=== PATIENT | female | born 1990 | race Caucasian/White ===

== ENCOUNTER 2017-02-17 14:00 | Inpatient (IN) | payer MEDICAID ==
[~2017-02-17] VITALS: Ht 162.6 cm; Wt 55.8 kg
--- NOTE | ~2017-02-17 | PA ---
Unit #: [id number] #: [id number] Patient: BARBARA DODGE [id number] [facility] [address] [place] [address] [id number] I MR#: [id number] NAME: BARBARA DODGE ROOM: P210 Age: 26 Sex: F Admission Date: 02/18/2017 : 1990 Date of Assessment: Attending Physician: Giuseppe Horne M.D. Admitting Physician: Giuseppe Horne M.D. PSYCHIATRIC ASSESSMENT INFORMANTS The patient reliability, fair informant and chart reliability, good. CHIEF COMPLAINT Detox and jackie. HISTORY OF PRESENT ILLNESS Barbara Dewey is a 26-year-old female, presented with the above-mentioned complaint. The patient presented with suicidal ideation. The patient was sent out for medical clearance because of chest pain. The patient returned to [facility]. Denied suicidal ideation. Reported scratched her eyes with her finger and was hearing voices on 02/16/2017. The patient denied any current suicidal ideation. The patient reported having withdrawals from heroin and also using meth, but reported heroin 0.5 g and meth on 02/16/2017. The patient feeling anxious, nervous, having above-mentioned behavior. Needing inpatient treatment at this time for psychiatric stabilization. PAST PSYCHIATRIC HISTORY Remarkable for history of previous treatment at [facility], last admitted in 08/2016. FAMILY HISTORY AND SOCIAL HISTORY Poor family support. No known history of any psychiatric illness. No legal charges. MEDICAL HISTORY Unremarkable for any chronic medical illness, except self-harm on her face. MEDICATION HISTORY None. ALLERGIES No known drug allergies. SUBSTANCE ABUSE HISTORY The patient reported tobacco use, age of onset 11 and use of alcohol, crack cocaine, opioids, amphetamine, and synthetic drugs. Longest period of sobriety 4 months and last period of sobriety in 2017. The patient reported history of hepatitis, withdrawal symptom, and IV drug use. No history of blackouts. The patient reported abdominal cramping, muscle cramping, diaphoresis, diarrhea, depressed mood, headache, irritability, nervousness, poor appetite and concentration, and tremor. Unit #: [id number] #: [id number] Patient: BARBARA DODGE REVIEW OF SYSTEMS HEENT: Eyes, clear. Ears, nose, mouth, and throat; clear. CARDIOVASCULAR: Unremarkable. RESPIRATORY: Unremarkable. GI: Unremarkable. : Unremarkable. SKIN: Unremarkable. LYMPH NODE: Unremarkable. NEUROLOGIC: Unremarkable. ENDOCRINE: Unremarkable. HEMATOLOGIC: Unremarkable. ALLERGIC/IMMUNOLOGIC: Unremarkable. MUSCULOSKELETAL: Muscle strength and tone, no atrophy or abnormal movement. Gait normal. MENTAL STATUS EXAMINATION CONSTITUTIONAL: Measurement of vital signs; temperature 97.6, heart rate 72, respiratory rate 17, and blood pressure 138/76. Height 5 feet 4 inches and weight 123 pounds. GENERAL APPEARANCE: The patient dressed casually. Hygiene and grooming, fair. No facial deformity noted except for facial scratching. MUSCULOSKELETAL: Please see above. PSYCHIATRIC EXAMINATION Description of speech, slow in volume and rate. Description of thought process, circumstantial. Description of association, intact. Description of abnormal psychotic thinking, guarded. The patient reported mood lability, sad, depressed, and anxious. Denied any suicidal or homicidal ideation, but self-injurious behavior. Description of the patient's judgment: Concerning everyday activity, poor. Social situation, poor. Concerning psychiatric condition, poor. Complete mental status examination; oriented in time, place, and person. Recent and remote memory, poor. Attention span and concentration, poor. Language, fair. Fund of knowledge, fair. Vocabulary, fair. Mood and affect, sad and dysphoric. Insight and judgment, fair to poor. ASSETS AND LIABILITIES Assets, the patient is articulate and able to take care of her ADL. Liability, history of substance abuse and depression. ADMITTING DIAGNOSES Psychiatric: Major depressive disorder, recurrent, severe, F33.2; amphetamine use disorder, severe, F15.20; and history of opioid use disorder, severe, F11.20. Secondary diagnosis: Deferred. Medical diagnosis: None. Stressors: Psychosocial stressors. PSYCHIATRIC PLAN AND TREATMENT GOAL AND DISCHARGE PLAN 1. Advised to admit the patient on the inpatient unit. Provide safe, supportive, and structured environment. 2. Ordered labs; CBC, CMP, UA, and UDS. 3. Precaution for self-harm. Unit #: [id number] #: [id number] Patient: BARBARA DODGE 4. The patient to start with detox protocol and detox monitoring. Advised trazodone 75 mg at bedtime for sleep. The patient to attend all the programing, group therapy, individual therapy, and chemical dependency group. Treatment goal to attain euthymic mood, gain insight into her problem, and learn coping skills. DISCHARGE PLAN Plan to stabilize the patient and consider followup in outpatient program. ESTIMATED LENGTH OF STAY 3 to 5 days. Dictated by... Candy Yao/lucy TD: 02/18/2017 16:10 JOB #: [id number] PSYCHIATRIC ASSESSMENT Page 1 of 1 X Giuseppe Horne MD X PSYCHIATRIC ASSESSMENT
--- NOTE | ~2017-02-17 | HP ---
Unit #: [id number] #: [id number] Patient: BARBARA DODGE [id number] [facility] [address] [place] [address] [id number] I MR#: [id number] NAME: BARBARA DODGE ROOM: P210 Age: 26 Sex: F Admission Date: 02/18/2017 : 1990 Attending Physician: Giuseppe Horne M.D. Admitting Physician: Giuseppe Horne M.D. Primary Care Physician: Primary Care Physician No HISTORY AND PHYSICAL HISTORY OF PRESENT ILLNESS Barbara is a 26 year old admitted to [address] [place] [address] because of her drug use. She shoots methamphetamine. PAST MEDICAL HISTORY 1. Long history of illicit substance abuse to include IV meth. 2. Hepatitis C. PAST SURGICAL HISTORY x1. ALLERGIES Risperdal. SOCIAL HISTORY Smokes 1 pack per day. Drinks alcohol on occasion. Admits to a long history of illicit substance abuse to include IV meth and heroin. FAMILY HISTORY Medically noncontributory. REVIEW OF SYSTEMS CONSTITUTIONAL: No fever or chills. HEENT: Patient reports that she has been clawing at her eyes while she was high. She denies any problems with her vision except she is having minimal light sensitivity. She denies any drainage from her eyes. CARDIOVASCULAR: Denies chest pain, irregular heart rhythm or palpitations. CHEST: Denies shortness of breath or cough. No hemoptysis. GASTROINTESTINAL: Denies nausea, vomiting, diarrhea or chronic constipation. ENDOCRINE: Denies history of increased thirst or urination. No recent significant weight loss or gain. GENITOURINARY: Denies dysuria, frequency, or hematuria. SKIN: Denies any rashes. HEMATOLOGIC: Denies history of increased bleeding or bruising. MUSCULOSKELETAL: Denies any hot, swollen joints. No generalized muscle pain. NEUROLOGIC: Denies problems with vision or speech. No frequent, severe headaches. No numbness, tingling or weakness in any extremities. Denies loss of bladder or bowel control. CURRENT MEDICATIONS 1. Detox protocol. Unit #: [id number] #: [id number] Patient: BARBARA DODGE 2. Ciloxan eye drops. PHYSICAL EXAMINATION GENERAL: Alert, well-nourished, in no apparent distress. VITAL SIGNS: Blood pressure 112/70, heart rate 90, respirations 16, temperature 98.6. WEIGHT: 123. HEIGHT: 5 feet 4 inches. SKIN: Warm and dry without rash or lesion. HEENT: Normocephalic. TMs not viewed. Oral and nasal passages clear. Conjunctivae with 2+ injection bilaterally. No discharge is noted. She has minimal light sensitivity only when looking directly at the light in the room. She is able to open her eyes and focus without difficulty. Excoriation noted along both upper eyelids. NECK: Supple without lymphadenopathy or thyromegaly. HEART: Regular rate and rhythm without murmur. LUNGS: Clear. ABDOMEN: Soft, nontender. : Not done. EXTREMITIES: No evidence of cyanosis, clubbing or edema. Moves all without focal deficit. NEUROLOGICAL: Grossly within normal limits. Cranial Nerves: II: Visual avilez are intact. III, IV AND : Extraocular movements are intact. Pupils are equal, round and reactive to light. V: Facial sensation is grossly normal. VII: Facial movements and expression are normal. VIII: Auditory acuity grossly intact. IX, X: Uvula is midline. Phonation is normal. XI: Patient shrugs shoulders and turns head normally. XII: Tongue protrudes in the midline. Sensory and Motor Function: Sensory and motor sensation is grossly normal. Motor: moves all extremities well. Coordination: Gait is normal. Deep Tendon Reflexes: Intact. IMPRESSION 1. Psychiatric admission. 2. History of illicit substance abuse to include IV drugs. 3. Bilateral conjunctivitis, self-inflicted prior to admission. RECOMMENDATIONS PSYCHIATRIC: Per psychiatrist. MEDICAL: 1. See no contraindication to participate in facility's activities. 2. Finish Ciloxan drops. Detox per protocol. MEDICAL PROGNOSIS Good. MEDICAL CONDITION Stable. Dictated by... Che Wynn P.A.-C. for Candy Flowers/[facility] Unit #: [id number] #: [id number] Patient: BARBARA DODGE TD: 02/19/2017 17:40 JOB #: [id number] HISTORY AND PHYSICAL Page 1 of 1 X Che Wynn X HISTORY AND PHYSICAL
--- NOTE | ~2017-02-17 | PN ---
Unit #: [id number] #: [id number] Patient: BARBARA BROUSSARD [id number] [facility] [address] [place] [address] [id number] I MR#: [id number] NAME: BARBARA BROUSSARD ROOM: P210 Age: 26 Sex: F Admission Date: 02/18/2017 : 1990 Attending Physician: Giuseppe Horne M.D. Admitting Physician: Giuseppe Horne M.D. Primary Care Physician: Primary Care Physician Courtney RIOS NOTES DATE OF SERVICE: 02/20/2017 DISCUSSION Ms. Barbara Broussard is a 26-year-old female, seen on 02/20/2017. The patient interviewed, chart reviewed, and obtained information from nursing staff. The patient is tolerating medication fairly well. Compliant and cooperative, but still seclusive and isolative. Vital signs; temperature 98.4, heart rate 73, and blood pressure 92/60. REVIEW OF SYSTEMS Complete review of systems unremarkable. MENTAL STATUS EXAMINATION General appearance, the patient dressed casually. Attention span and concentration, fair. Oriented in time, place, and person. Mood and affect, labile. Speech, monotone. Thought process, concrete. The patient denied any thoughts of harming self or others. Recent and remote memory, poor. Insight and judgment, poor. DIAGNOSES Major depressive disorder, recurrent, severe and amphetamine use disorder, severe. ASSESSMENT AND PLAN Advised to continue with current medication and therapeutic protocol. If needed, consider further adjustment of medication. Dictated by... Candy Yao/lucy TD: 02/21/2017 18:38 JOB #: [id number] Unit #: [id number] #: [id number] Patient: BARBARA BROUSSARD [place] PROGRESS NOTES Page 1 of 1 X Giuseppe Horne MD PROGRESS NOTE
--- NOTE | ~2017-02-17 | PN ---
Unit #: [id number] #: [id number] Patient: BARBARA BROUSSARD [id number] [facility] [address] [place] [address] [id number] I MR#: [id number] NAME: BARBARA BROUSSARD ROOM: P210 Age: 26 Sex: F Admission Date: 02/18/2017 : 1990 Attending Physician: Giuseppe Horne M.D. Admitting Physician: Giuseppe Horne M.D. Primary Care Physician: Primary Care Physician Courtney ENCISO PROGRESS NOTES DATE OF SERVICE 02/19/2017 DISCUSSION Barbara Broussard is a 26-year-old female seen on 02/19/2017. Patient interviewed, chart reviewed. Obtained information from nursing staff. Patient reports feeling better currently on Zyprexa. Vital signs 98.3, 90, 112/70. Patient continues to be isolative, guarded, flat affect. Complete review of systems unremarkable. MENTAL STATUS EXAMINATION General appearance, patient dressed casually. Attention span and concentration fair. Oriented to time, place and person. Mood and affect labile. Speech monotone. Thought process concrete. Patient denied any thoughts of harming self or others. Recent and remote memory poor. Insight and judgement poor. DIAGNOSES Mood disorder NOS. ASSESSMENT/PLAN Advise to continue with current medication and therapeutic protocol. If needed consider further adjustment of medication. Dictated by... Candy Yao/jg TD: 02/21/2017 22:40 JOB #: [id number] Unit #: [id number] #: [id number] Patient: BARBARA BROUSSARD PROGRESS NOTES Page 1 of 1 X Giuseppe Horne MD PROGRESS NOTE
--- NOTE | ~2017-02-17 | DS ---
Unit #: [id number] #: [id number] Patient: CARLI DODGE [id number] [facility] [address] [place] [address] [id number] MR#: [id number] NAME: CARLI DODGE ROOM: [facility] Age: 26 Sex: F Admission Date: 02/18/2017 : 1990 Discharge Date: 02/21/2017 Attending Physician: Giuseppe Horne M.D. Primary Care Physician: Primary Care Physician No DISCHARGE SUMMARY REASON FOR ADMISSION Manic symptom, detox. DIAGNOSTIC STUDIES LABORATORY RESULTS: Unremarkable. HOSPITAL COURSE The patient was admitted to inpatient unit on 02/18/2017 and discharged on 02/21/2017. The patient was treated with group therapy, individual therapy, chemical dependency group. The patient was responsive to treatment, showed improvement. Subsequently, the patient was discharged with a plan to follow up in outpatient program. DISCHARGE MEDICATIONS None. DISCHARGE DIAGNOSES Psychiatric: Major depressive disorder, recurrent, severe, F33.2; amphetamine use disorder, severe, F15.20; history of opioid use disorder, severe, F11.20. Secondary diagnosis: Deferred. Medical diagnosis: None. Stressors: Psychosocial stressors. DISCHARGE INSTRUCTIONS The patient to follow up in outpatient clinic as per 7th grade social studies teacher. CONDITION ON DISCHARGE The patient was pleasant and cooperative. Denied any psychotic symptom or any suicidal ideation. PROGNOSIS Guarded. DIET AND ACTIVITY As tolerated. Dictated by... Giuseppe Horne M.D. Unit #: [id number] #: [id number] Patient: CARLI DODGE SZC/modl TD: 02/21/2017 15:22 JOB #: [id number] DISCHARGE SUMMARY Page 1 of 1 X Giuseppe Horne MD DISCHARGE SUMMARY
[2017-02-19 13:47] LABS: BASOPHIL% 0.7 % (0-2.5); EOSINOPHIL# 0.1 X10e3 (0-0.7); EOSINOPHIL% 1.4 % (0.0-7.0); HEMATOCRIT 40.5 % (35.0-45.0); HEMOGLOBIN 13.3 gm/dL (12.0-16.0); LYMPHOCYTE# 1.9 X10e3 (1.0-3.5); LYMPHOCYTE% 33.2 % (17.0-45.0); MEAN CELL VOLUME 86.7 FL (83-96); MEAN CORPUSCULAR HEMOGLOBIN 28.4 PG (28-34); MEAN CORPUSCULAR HGB CONC 32.7 g/dL (30-36); MEAN PLATELET VOLUME 10.1 FL (6.5-11.5); MONOCYTE# 0.3 X10e3 (0-1.0); MONOCYTE% 4.3 % (3.0-12.0); NEUTROPHIL# 3.5 X10e3 (1.5-7.1); NEUTROPHIL% 60.4 % (40-75); PLATELET COUNT 282 X10e3 (140-420); RED BLOOD COUNT 4.68 X10e (3.90-5.30); RED CELL DISTRIBUTION WIDTH 12.6 % (11.0-15.5); WHITE BLOOD COUNT 5.9 X10e3 (4.0-10.5)
[2017-02-19 13:49] LABS: DIFF IND NO
[2017-02-19 13:58] LABS: ALBUMIN SERUM 3.4 g/dL (3.5-5.0); BILIRUBIN,TOTAL 0.6 mg/dL (0.2-2.0); CALCIUM SERUM 9.1 mg/dL (8.4-10.2); CREATININE SERUM 0.8 mg/dL (0.6-1.4); GLOM FILT RATE Estimated 101.8 mL/min (>60); POTASSIUM 3.8 mmol/L (3.5-5.1); PROTEIN TOTAL SERUM 6.2 g/dL (6.0-8.3)
== END 2017-02-21 12:04 | disposition home or self-care (01) | DRG 885 ==
LOC: P2S 02-18 05:34
PROVIDERS: Psychiatry & Neurology Psychiatry
PROC: HZ2ZZZZ Detoxification Services for Substance Abuse Treatment (ICD-10-PCS; principal; 2017-02-18)
DX: F33.2 Major depressive disorder, recurrent severe without psychotic features (principal); F15.20 Other stimulant dependence, uncomplicated; R45.851 Suicidal ideations; F17.210 Nicotine dependence, cigarettes, uncomplicated; H10.9 Unspecified conjunctivitis
CPT/HCPCS: 80053; 84703; 85025; 86592